=== PATIENT | female | born 1935 | race Asian ===

== ENCOUNTER 2017-12-02 07:33 | Outpatient (CLI) | payer MEDICARE ==
[2017-12-02] MEDS ORDERED: ADENOSINE 60 MG/20 ML VIAL ONE (09:44)
--- NOTE | 2017-12-02 14:02 | NM ---
CARDIAC SPECT: CLINICAL HISTORY: 82-year-old female with chest pain, hypertension. TECHNIQUE: A myocardial perfusion scan was performed using the single isotope one day protocol with technetium-9 9m sestamibi. 10 mCi were injected intravenously for the rest exam followed by 31 mCi for the stress exam. Pharmacologic stress with Adenosine was monitored and interpreted by Tio Milian NP. FINDINGS: Homogeneous tracer distribution is seen in the myocardial segments on stress and rest images without fixed or reversible defects. GATED SPECT LVEF: 88%. WALL MOTION EXAM: Normal. IMPRESSION: Normal myocardial perfusion scan. POS: NITO
== END 2017-12-02 07:34 | disposition home or self-care (01) ==
LOC: NM 07:33
PROVIDERS: ATTEND Internal Medicine
DX: R07.9 Chest pain, unspecified (principal)
CPT/HCPCS: 78452; 93017; A9500; J0153

== ENCOUNTER 2019-08-23 07:01 | Day surgery (SDC) | payer MEDICARE ==
[2019-08-20 14:41] VITALS: BMI 25.7
[~2019-08-23 07:01] MED LIST: FLU VACC TS2019-20(65YR UP)/PF 180 MCG/0.5 ML SYRINGE IM ONE; Prevnar 13-Val Conj/PF 0.5 ML SYRINGE IM ONE
[2019-08-23 07:51] VITALS: BP 160/81; TEMP 98.2
--- NOTE | 2019-08-23 09:01 | RAD ---
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 [facility] [employer] imaging of the lumbar spine demonst rates a mild degree of degenerative levo rotoscoliosis. Multilevel disc space narrowing with degenerative endplate change and mild lateral osteophyte formation noted, most prominent at L3-4 and L4-5. Skin overlying the lumbar spine was prepped and draped in normal sterile fashion and skin was anesthe tized at L3-4 level. With intermittent fluoroscopic guidance, a 22-gauge spinal needle is advanced into the thecal sac and removal of the stylet yields clear cerebrospinal fluid. Opening pressure is n ormal, approximately 10 cm of water. A total of approximately 10 cc of clear CSF was obtained and sent to the laboratory for assessment. T he patient tolerated the procedure well. Exposure data: 2.3 minutes fluoroscopic time, 333.8 mcg/sq m IMPRESSION: Successful lumbar puncture with fluoroscopic guidance.
[2019-08-23 09:41] LABS: CSF, Glucose 59 mg/dl (40-70); CSF, Protein 38 mg/dL (15-40)
[2019-08-23 11:36] LABS: Ref Lab Test Ordered FTA ABS CSF; Reference Lab Name LABCORP
[2019-08-23 11:41] LABS: CSF Source CSF; Clarity Clear (Clear); Clarity Hazy (Clear); Tube # 1; Tube # 4
[2019-08-23 11:44] LABS: Cell Count Non Hematic 15 %; Eosinophils 5 %; Lymphocytes 50 %; Segmented Neutrophils 30 %
== END 2019-08-23 10:00 | disposition home or self-care (01) ==
LOC: RAD 07:01
PROVIDERS: ATTEND Internal Medicine
PROC: 009U3ZX Drainage of Spinal Canal, Percutaneous Approach, Diagnostic (ICD-10-PCS; principal; 2019-08-23)
PROC: B01B1ZZ Fluoroscopy of Spinal Cord using Low Osmolar Contrast (ICD-10-PCS; 2019-08-23)
DX: A52.3 Neurosyphilis, unspecified (principal); M41.56 Other secondary scoliosis, lumbar region; K21.9 Gastro-esophageal reflux disease without esophagitis; I10 Essential (primary) hypertension; G62.9 Polyneuropathy, unspecified; Z79.899 Other long term (current) drug therapy; Z88.8 Allergy status to other drugs, medicaments and biological substances
CPT/HCPCS: 62270; 82945; 84157; 85060; 86592; 87070; 87205; 89051